=== PATIENT | male | born 1980 | race Caucasian/White ===

== ENCOUNTER 2017-12-22 02:21 | Emergency (ER) | payer OTHER ==
[2017-12-22 02:31] VITALS: BP 146/91; PULSE 105; RESP 20; TEMP 98.7
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
[2017-12-22] MEDS ORDERED: PROPARACAINE 0.5% OPHTH DROPS 15 ML BTL BOTH EYES STA (03:09)
[2017-12-22] MEDS ORDERED: FLUORESCEIN STRIPS 1 MG STRIP BOTH EYES ONE (03:09)
== END 2017-12-22 03:35 | disposition left against medical advice (07) ==
LOC: EC 02:21
DX: H53.8 Other visual disturbances (principal); F41.9 Anxiety disorder, unspecified; R00.0 Tachycardia, unspecified; I10 Essential (primary) hypertension; G89.29 Other chronic pain; G47.30 Sleep apnea, unspecified; I25.2 Old myocardial infarction; F17.200 Nicotine dependence, unspecified, uncomplicated; Z79.82 Long term (current) use of aspirin; Z79.891 Long term (current) use of opiate analgesic; Z79.899 Other long term (current) drug therapy; Z88.1 Allergy status to other antibiotic agents; Z91.013 Allergy to seafood; Z91.048 Other nonmedicinal substance allergy status; Z86.69 Personal history of other diseases of the nervous system and sense organs; Z99.89 Dependence on other enabling machines and devices
CPT/HCPCS: 99283

== ENCOUNTER 2022-03-16 10:33 | Emergency (ER) | payer OTHER ==
[2022-03-16 10:37] VITALS: BP 165/112; PULSE 110; RESP 20; TEMP 97.7
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
== END 2022-03-16 12:29 | disposition home or self-care (01) ==
LOC: EC 10:33
DX: G54.2 Cervical root disorders, not elsewhere classified (principal); K21.9 Gastro-esophageal reflux disease without esophagitis; I10 Essential (primary) hypertension; I25.2 Old myocardial infarction; F17.200 Nicotine dependence, unspecified, uncomplicated; Z88.1 Allergy status to other antibiotic agents; Z91.041 Radiographic dye allergy status; Z91.013 Allergy to seafood; Z79.82 Long term (current) use of aspirin; Z79.899 Other long term (current) drug therapy
CPT/HCPCS: 70450; 72125; 99283

== ENCOUNTER 2022-10-16 10:47 | Emergency (ER) | payer OTHER ==
[2022-10-16 10:52] VITALS: PULSE 70; RESP 20; TEMP 98.7
[2022-10-16 11:18] LABS: Glucose,Whole Blood 98 mg/dL (70-110)
--- NOTE | 2022-10-16 11:32 | ED ---
General Adult HPI - General Chief complaint: Chest Pain Stated complaint: Chest Pain Time Seen by Provider: 10/16/22 10:53 Source: EMS Mode of arrival: EMS Limitations: no limitations - History of Present Illness Initial comments: Dictation was produced using [employer] dictation software. please excuse any grammatical, word or spelling errors. Chief Complaint: 42-year-old male presents emergency department for chest pain, alleged seizure and lethargy History of Present Illness: History of present illness obtained from EMS, contracts officer and patient. Patient allegedly at around 9:00 AM was mopping floors when all of a sudden went to his room. Apparently someone called to the attention of the [facility] guards states that patient was having a seizure. It is unclear patient had tonic-clonic activity. Harley patient had postictal state. He does have a history of seizure. Patient having left-sided chest pain. Nonradiating. States sharp. Patient is a poor historian. The ROS documented in this emergency department record has been reviewed and confirmed by me. Those systems with pertinent positive or negative responses have been documented in the HPI. All other systems are other negative and/or noncontributory. - Related Data Home Medications Medication Instructions Recorded Confirmed Acetaminophen-Codeine 300-30mg 1 tab PO DAILY 05/11/15 12/22/17 [Tylenol #3] Aspirin [Adult Low Dose Aspirin EC] 81 mg PO DAILY 05/11/15 12/22/17 Dextroamphetamine/Amphetamine 10 mg PO DAILY PRN 05/11/15 12/22/17 [Adderall] Divalproex ER [Depakote ER] 250 mg PO HS 05/11/15 12/22/17 Metoprolol Tartrate 25 mg PO BID 05/11/15 12/22/17 Mirtazapine 45 mg PO HS 05/11/15 12/22/17 Nitroglycerin Sl Tabs [Nitrostat] 0.4 mg SUBLINGUAL Q5M PRN 05/11/15 12/22/17 Prazosin HCl 5 mg PO HS 05/11/15 12/22/17 SUMAtriptan succinate [Imitrex] 50 mg PO ONCE PRN 05/11/15 12/22/17 Topiramate 50 mg PO HS 05/11/15 12/22/17 Previous Rx's Medication Instructions Recorded predniSONE 50 mg PO Q24H 5 Days #5 tablet 03/16/22 Allergies Allergy/AdvReac Type Severity Reaction Status Date / Time cefaclor [From Ceclor] Allergy Unknown Verified 10/16/22 10:52 iodine Allergy Unknown Verified 10/16/22 10:52 risperidone [From Risperdal] Allergy Anaphylaxis Verified 10/16/22 10:52 seafood Allergy Unknown Uncoded 10/16/22 10:52 Review of Systems ROS Statement: Those systems with pertinent positive or pertinent negative responses have been documented in the HPI. ROS Other: All systems not noted in ROS Statement are negative. Past Medical History Past Medical History: GERD/Reflux, Hypertension, Liver Disease, Myocardial Infarction ([place]), Neurologic Disorder, Sleep Apnea/CPAP/BIPAP Additional Past Medical History / Comment(s): migraines, TBI, PTSD, IL X 2 (2 009?). HEART CATHS (MAY 2014 [facility]), PATIENT STATES CHRONIC PAIN TO LEFT GROIN AREA RELATED TO HEART CATHERIZATIONS Last Myocardial Infarction Date:: 2008? History of Any Multi-Drug Resistant Organisms: None Reported Past Surgical History: Heart Catheterization Additional Past Surgical History / Comment(s): LAST HEART CATH WAS MAY 1014, SHRAPNEL THROUGH OUT BODY, RIGHT HAND SURGERY (HAS METAL HARDWARE). KNEE SURGERY Past Anesthesia/Blood Transfusion Reactions: No Reported Reaction Past Psychological History: PTSD Smoking Status: Current every day smoker Past Alcohol Use History: None Reported, Occasional Past Drug Use History: None Reported General Exam - General Exam Comments Initial Comments: PHYSICAL EXAM: General Impression: Alert and oriented x3, not in acute distress HEENT: Normocephalic atraumatic, extra-ocular movements intact, pupils equal and reactive to light bilaterally, mucous membranes moist. Cardiovascular: Heart regular rate and rhythm Chest: Able to complete full sentences, no retractions, no tachypnea Abdomen: abdomen soft, non-tender, non-distended, no organomegaly Musculoskeletal: Pulses present and equal in all extremities, no peripheral edema Motor: no focal deficits noted Neurological: CN II-XII grossly intact, no focal motor or sensory deficits noted Skin: Intact with no visualized rashes Psych: Normal affect and mood Limitations: no limitations Course Vital Signs 10/16/22 10/16/22 10/16/22 10:48 10:50 11:00 Temperature 98.7 F Pulse Rate 70 72 73 Respiratory 20 20 18 Rate Blood Pressure 127/79 127/79 122/74 O2 Sat by Pulse 100 100 98 Oximetry 10/16/22 10/16/22 10/16/22 11:30 12:00 12:30 Temperature Pulse Rate 68 70 66 Respiratory 18 20 18 Rate Blood Pressure 113/75 114/71 107/69 O2 Sat by Pulse 98 97 98 Oximetry 10/16/22 13:00 Temperature Pulse Rate 70 Respiratory 20 Rate Blood Pressure 104/69 O2 Sat by Pulse 98 Oximetry Medical Decision Making - Medical Decision Making Was pt. sent in by a medical professional or institution (, PA, DIVIDEND DEPOSIT ENTRY CLERK, urgent care, hospital, or detention...) When possible be specific @ -Alf Did you speak to anyone other than the patient for history (EMS, parent, family, police, friend...)? What history was obtained from this source @ -No Did you review nursing and triage notes (agree or disagree)? Why? @ -I reviewed and agree with nursing and triage notes Were old charts reviewed (outside hosp., previous admission, EMS record, old EKG, old radiological studies, urgent care reports/EKG's, detention records)? Report findings @ -No old charts were reviewed Differential Diagnosis (chest pain, altered mental status, abdominal pain women, abdominal pain men, vaginal bleeding, musculoskeletal, weakness, fever, dyspnea, syncope, headache, dizziness, GI bleed, back pain, seizure, CVA, palpatations, mental health)? @ -Differential Seizure: Recurrent seizure disorder, febrile seizure, alcohol withdrawal, stimulants, meningitis, encephalitis, intercranial hemorrhage, intracranial tumor, stroke, eclampsia, thyrotoxicosis, hypocalcemia, hyponatremia, hypernatremia, hypomagnesemia, psychogenic, this is not meant to be an all-inclusive list. EKG interpreted by me (3pts min.). @ -My EKG interpretation: Ventricular rate 71, sinus rhythm,. Interval 165, QRS 100, QTC 414. No WA prolongation, no QTC prolongation, no ST or T-wave changes noted. EKG compared to default value showing no changes. Overall, this EKG is unremarkable X-rays interpreted by me (1pt min.). @ -None done CT interpreted by me (1pt min.). @ -Computed tomography scan of the brain is unremarkable for acute processes U/S interpreted by me (1pt. min.). @ -None done What testing was considered but not performed or refused? (CT, X-rays, U/S, labs)? Why? @ -None What meds were considered but not given or refused? Why? @ -None Did you discuss the management of the patient with other professionals (professionals i.e. , PA, DIVIDEND DEPOSIT ENTRY CLERK, lab, RT, psych nurse, manager social media, muffler hand, teacher, global chief experience officer, case preparer and liner)? Give summary @ -No Was smoking cessation discussed for >3mins.? @ -No Was critical care preformed (if so, how long)? @ -No Were there social determinants of health that impacted care today? How? (Homelessness, low income, unemployed, alcoholism, drug addiction, transportation, low edu. Level, literacy, decrease access to med. care, prison, r ehab)? @ -No Was there de-escalation of care discussed even if they declined (Discuss DNR or withdrawal of care, Hospice)? DNR status @ -No What co-morbidities impacted this encounter? (DM, HTN, Smoking, COPD, CAD, Cancer, CVA, ARF, Chemo, Hep., AIDS, mental health diagnosis, sleep apnea, morbid obesity)? @ -None Was patient admitted / discharged? Hospital course, mention meds given and route, prescriptions, significant lab abnormalities, going to OR and other pertinent info. @ -42 Year-old male presents emergency department for medical evaluation. Patient's complaint was chest pain. There is history that suggests patient may have had a seizure today. Patient's has seizure history. Questionable patient was postictal upon arrival. Patient observed in the ER. Reevaluated at bedside with significant improvement of his mentation. Patient feels like his back at baseline. Laboratory evaluation unremarkable. Patient be [facility] back to [facility]. Suspected patient had seizure. Undiagnosed new problem with uncertain prognosis? @ -No Drug Therapy requiring intensive monitoring for toxicity (Heparin, Nitro, Insulin, Cardizem)? @ -No Were any procedures done? @ -No Diagnosis/symptom? Acute, or Chronic, or Acute on Chronic? Uncomplicated (without systemic symptoms) or Complicated (systemic symptoms)? @ -1.Recurrent seizure in patient with a history of seizure Side effects of treatment? @ -No Exacerbation, Progression, or Severe Exacerbation? @ -No Poses a threat to life or bodily function? How? (Chest pain, [place], [place], pneumonia, PE, COPD, DKA, ARF, appy, cholecystitis, CVA, Diverticulitis, Homicidal, Suicidal, threat to staff... and all critical care pts) @ -yes - Lab Data Result diagrams: 10/16/22 11:21 10/16/22 11:21 Lab Results 10/16/22 10/16/22 10/16/22 Range/Units 11:16 11:21 11:21 WBC 13.2 H (3.8-10.6) k/uL RBC 4.95 (4.30-5.90) m/uL Hgb 14.7 (13.0-17.5) gm/dL Hct 43.0 (39.0-53.0) % MCV 86.9 (80.0-100.0) fL MCH 29.7 (25.0-35.0) pg MCHC 34.2 (31.0-37.0) g/dL RDW 14.4 (11.5-15.5) % Plt Count 192 (150-450) k/uL MPV 8.4 Neutrophils % 78 % Lymphocytes % 14 % Monocytes % 6 % Eosinophils % 1 % Basophils % 0 % Neutrophils # 10.3 H (1.3-7.7) k/uL Lymphocytes # 1.8 (1.0-4.8) k/uL Monocytes # 0.7 (0-1.0) k/uL Eosinophils # 0.1 (0-0.7) k/uL Basophils # 0.0 (0-0.2) k/uL Sodium 137 (137-145) mmol/L Potassium 4.3 (3.5-5.1) mmol/L Chloride 103 (98-107) mmol/L Carbon Dioxide 25 (22-30) mmol/L Anion Gap 9 mmol/L BUN 11 (9-20) mg/dL Creatinine 0.67 (0.66-1.25) mg/dL Est GFR (CKD-EPI)AfAm >90 (>60 ml/min/1.73 sqM) Est GFR (CKD-EPI)NonAf >90 (>60 ml/min/1.73 sqM) Glucose 85 (74-99) mg/dL POC Glucose (mg/dL) 98 (70-110) mg/dL POC Glu Shrinker ID Jv Lopez Plasma Lactic Acid Manuel (0.7-2.0) mmol/L Calcium 8.6 (8.4-10.2) mg/dL Magnesium 1.8 (1.6-2.3) mg/dL Total Bilirubin 0.4 (0.2-1.3) mg/dL AST 25 (17-59) U/L ALT 24 (4-49) U/L Alkaline Phosphatase 176 H (38-126) U/L Troponin I (0.000-0.034) ng/mL Total Protein 6.1 L (6.3-8.2) g/dL Albumin 4.0 (3.5-5.0) g/dL 10/16/22 10/16/22 Range/Units 11:21 11:21 WBC (3.8-10.6) k/uL RBC (4.30-5.90) m/uL Hgb (13.0-17.5) gm/dL Hct (39.0-53.0) % MCV (80.0-100.0) fL MCH (25.0-35.0) pg MCHC (31.0-37.0) g/dL RDW (11.5-15.5) % Plt Count (150-450) k/uL MPV Neutrophils % % Lymphocytes % % Monocytes % % Eosinophils % % Basophils % % Neutrophils # (1.3-7.7) k/uL Lymphocytes # (1.0-4.8) k/uL Monocytes # (0-1.0) k/uL Eosinophils # (0-0.7) k/uL Basophils # (0-0.2) k/uL Sodium (137-145) mmol/L Potassium (3.5-5.1) mmol/L Chloride (98-107) mmol/L Carbon Dioxide (22-30) mmol/L Anion Gap mmol/L BUN (9-20) mg/dL Creatinine (0.66-1.25) mg/dL Est GFR (CKD-EPI)AfAm (>60 ml/min/1.73 sqM) Est GFR (CKD-EPI)NonAf (>60 ml/min/1.73 sqM) Glucose (74-99) mg/dL POC Glucose (mg/dL) (70-110) mg/dL POC Glu Shrinker ID Plasma Lactic Acid Manuel 1.3 (0.7-2.0) mmol/L Calcium (8.4-10.2) mg/dL Magnesium (1.6-2.3) mg/dL Total Bilirubin (0.2-1.3) mg/dL AST (17-59) U/L ALT (4-49) U/L Alkaline Phosphatase (38-126) U/L Troponin I <0.012 (0.000-0.034) ng/mL Total Protein (6.3-8.2) g/dL Albumin (3.5-5.0) g/dL Disposition Clinical Impression: Seizure Disposition: HOME SELF-CARE Condition: Good Instructions (If sedation given, give patient instructions): Recurrent Seizures in Adults (ED) Is patient prescribed a controlled substance at d/c from ED?: No Referrals: None,Stated [REFERRING] - 1-2 days Time of Disposition: 12:30
--- NOTE | 2022-10-16 11:51 | CT ---
EXAMINATION TYPE: CT brain wo con DATE OF EXAM: 10/16/2022 COMPARISON: Prior CT brain March 16, 2022 HISTORY: seizure like activity CT DLP: 1123.4 mGycm. Automated Exposure Control for Dose Reduction was Utilized. TECHNIQUE: CT scan of the head is performed without contrast. FINDINGS: There is no acute intracranial hemorrhage, mass effect, or midline shift identified. The ventricles and sulci are within normal limits in size. Benavides-white matter differentiation is maintai brittany. The globes are intact and the visualized sinuses are clear. IMPRESSION: No acute intracranial hemorrhage, mass effect, or midline shift is seen. Unremarkable st udy. No significant change from prior.
[2022-10-16 11:52] LABS: ALT 24 U/L (4-49); AST 25 U/L (17-59); African American GFR (CKD) >90 (>60 ml/min/1.73 sqM); Alkaline Phosphatase 176 U/L (38-126); Anion Gap 9 mmol/L; Blood Urea Nitrogen 11 mg/dL (9-20); Calcium 8.6 mg/dL (8.4-10.2); Carbon Dioxide 25 mmol/L (22-30); Chloride 103 mmol/L (98-107); Glucose 85 mg/dL (74-99); Magnesium 1.8 mg/dL (1.6-2.3); Non-African American GFR(CKD) >90 (>60 ml/min/1.73 sqM); Potassium 4.3 mmol/L (3.5-5.1); Sodium 137 mmol/L (137-145); Total Bilirubin 0.4 mg/dL (0.2-1.3); Total Protein 6.1 g/dL (6.3-8.2)
[2022-10-16 12:17] LABS: Basophils % (A) 0 %; Eosinophils # (A) 0.1 k/uL (0-0.7); Eosinophils % (A) 1 %; HGB 14.7 gm/dL (13.0-17.5); Lymphocytes # (A) 1.8 k/uL (1.0-4.8); Lymphocytes % (A) 14 %; MCH 29.7 pg (25.0-35.0); MCHC 34.2 g/dL (31.0-37.0); MCV 86.9 fL (80.0-100.0); Mean Platelet Volume 8.4; Monocytes # (A) 0.7 k/uL (0-1.0); Monocytes % (A) 6 %; Neutrophils # (A) 10.3 k/uL (1.3-7.7); Neutrophils % (A) 78 %; Platelet Count 192 k/uL (150-450); RBC 4.95 m/uL (4.30-5.90); RDW 14.4 % (11.5-15.5); WBC 13.2 k/uL (3.8-10.6)
[2022-10-16 13:08] VITALS: BP 104/69
== END 2022-10-16 13:37 | disposition home or self-care (01) ==
LOC: EC 10:47
DX: R56.9 Unspecified convulsions (principal); I10 Essential (primary) hypertension; I25.2 Old myocardial infarction; K21.9 Gastro-esophageal reflux disease without esophagitis; F17.200 Nicotine dependence, unspecified, uncomplicated; Z79.82 Long term (current) use of aspirin; Z79.899 Other long term (current) drug therapy; Z88.1 Allergy status to other antibiotic agents; Z88.8 Allergy status to other drugs, medicaments and biological substances; Z91.013 Allergy to seafood
CPT/HCPCS: 36415; 70450; 80053; 83605; 83735; 84484; 85025; 93005; 99285